=== PATIENT | female | born 1975 | race Caucasian/White ===

== ENCOUNTER 2018-03-13 13:45 | Outpatient (RCR) | payer OTHER ==
[~2018-03-13 13:45] MED LIST: AMOXICILLIN 50500 MG PO; PRENATAL VITAMI1 TA5 PO
== END 2018-03-22 | disposition home or self-care (01) ==
LOC: WSOH
DX: S87.02XA Crushing injury of left knee, initial encounter (principal); W23.0XXA Caught, crushed, jammed, or pinched between moving objects, initial encounter; Y92.59 Other trade areas as the place of occurrence of the external cause; Y99.0 Civilian activity done for income or pay
CPT/HCPCS: 24091; A6549

== ENCOUNTER 2018-04-06 12:56 | Outpatient (RCR) | payer OTHER | END 2018-07-05 | disposition home or self-care (01) | LOC: WSOH | DX: S87.02XD Crushing injury of left knee, subsequent encounter (principal); W23.1XXA Caught, crushed, jammed, or pinched between stationary objects, initial encounter; Y92.59 Other trade areas as the place of occurrence of the external cause; Y99.0 Civilian activity done for income or pay ==